=== PATIENT | female | born 1960 | race Caucasian/White ===

== ENCOUNTER → 2016-11-10 | Outpatient (REF) | payer BC | LOC: M LAB REF 12:09 | PROVIDERS: ATTEND Physician Assistant | DX: J02.9 Acute pharyngitis, unspecified (principal) ==

== ENCOUNTER → 2017-02-22 | Outpatient (CLI) | payer BC ==
--- NOTE | 2017-02-22 14:37 | REP ---
TWO VIEW CHEST: No comparison. Two views of the chest are performed. Infiltrate is seen in the right lung, primarily in the right upper and middle lobes and possibly a portion of the right lower lobe. There is no definite infiltrate in the left lung. The heart is normal in size. There are mild degenerative changes of the spine. IMPRESSION: Right lung infiltrate. Followup suggested. Signed by Jaciel Quezada MD 02/22/2017 07:58 P
== END ==
LOC: M ADAMS 13:24
PROVIDERS: ATTEND Physician Assistant
DX: R91.8 Other nonspecific abnormal finding of lung field (principal)